=== PATIENT | male | born 1950 | race Caucasian/White ===

== ENCOUNTER → 2019-01-25 | Outpatient (CLI) | payer MEDICARE, BC ==
--- NOTE | 2019-01-25 16:51 | CT ---
EXAMINATION TYPE: CT chest wo con DATE OF EXAM: 01/25/2019 COMPARISON: None HISTORY: abnormal lung tillman CT DLP: 819.9 mGycm, Automated exposure control for dose reduction was used. CONTRAST: None TECHNIQUE: Axial images were obtained at 1 mm thick sections at 10 mm intervals. This will limit po rtions of the examination which may not be visualized within the [id number]. Images were obtained in the prone and supine views. FINDINGS: Portion of the thyroid visualized is normal. There is scattered peripheral increased lung markings compatible some pulmonary fibrosis. There is an area of thickening within the posterior lateral right lung, series 8 image 15 measuring 0.8 cm. Atel ectasis and a mass could be considered. No enlarged mediastinal or hilar adenopathy is evident. The ascending aorta diameter at the level o f the main pulmonary artery is 4.0 cm. The main pulmonary artery diameter at the bifurcation is 2.7 cm. Moderate coronary artery calcification is present. Limited CT sections are obtained through the upper abdomen. Abdomen is essentially unremarkable. IMPRESSIONS: 1. Peripheral increased lung markings compatible with early changes of pulmonary fibrosis. 2. 0.8 cm thick soft tissue density posterior lateral right midlung. Consider PET CT for additional e valuation. Neoplasm is not excluded.
== END | disposition home or self-care (01) ==
LOC: RADCTMAIN 15:39
PROVIDERS: ATTEND Internal Medicine Critical Care Medicine
DX: J84.10 Pulmonary fibrosis, unspecified (principal); J98.4 Other disorders of lung
CPT/HCPCS: 71250

== ENCOUNTER → 2022-07-05 | Outpatient (CLI) | payer MEDICARE, BC ==
--- NOTE | 2022-07-05 09:41 | PE ---
EXAMINATION TYPE: PET CT fusion whole body DATE OF EXAM: 07/05/2022 COMPARISON: Prior chest CT 2019 HISTORY: Multiple myeloma , newly diagnosed. No further information provided. TECHNIQUE: Following the intravenous administration of 10.79 mCi of F-18 FDG, whole body images are performed from the top of skull to the bottom of feet. Images are reviewed on the computer in the co pelon, axial, and sagittal planes. Reconstructed rotating images are created on independent workstat ion and reviewed on the computer. A localization and attenuation correction CT is performed in conj unction with the PET scan. Blood glucose level equals 95 SCAN: Initial Scan FINDINGS: HEAD AND NECK: No areas of abnormal hypermetabolic uptake are identified. CHEST, MEDIASTINUM, AND HILAR REGION: No areas of metabolic uptake. ABDOMEN AND PELVIS: Abnormal excretion. Mild nonspecific bowel uptake. No areas of suspicious abnorma l hypermetabolic uptake. Lower extremities: No abnormal hypermetabolic uptake. Genu varum positioning is seen bilateral knees with mild symmetric uptake is presumed product of inflammation related to osteoarthritis. OSSEOUS STRUCTURES: No areas of abnormal hypermetabolic uptake. OTHER CT: Mild calcified plaque bilateral carotid bulb level. Overlying sternal wires along with left atrial appendage clip are present. There is cardiomegaly seen. Ascending aortic aneurysm up to 4.2 c m axial image 111. Enlarged bilateral pulmonary arteries consistent with underlying pulmonary artery hypertension. Diverticula of the left and sigmoid colon. Large metallic nails through healed fracture right proxima l femur. IMPRESSION: No suspicious hypermetabolic masses or osseous lytic lesions to suggest active myeloma de posits.
== END | disposition home or self-care (01) ==
LOC: RADPETMAIN 06:43
PROVIDERS: ATTEND Internal Medicine
DX: D47.2 Monoclonal gammopathy (principal); C90.00 Multiple myeloma not having achieved remission
CPT/HCPCS: 78816; A9552

== ENCOUNTER → 2022-12-09 | Outpatient (CLI) | payer MEDICARE, BC ==
--- NOTE | 2022-12-09 13:58 | US ---
EXAMINATION TYPE: US venous doppler duplex LE DATE OF EXAM: 12/09/2022 1:26 PM COMPARISON: NONE CLINICAL INDICATION: Male, 72 years old with history of M79.662; M79.661; BILATERAL PAIN IN LEGS X 1 MONTH, DIFFICULTY SLEEPING DUE TO PAIN SIDE PERFORMED: Bilateral TECHNIQUE: The lower extremity deep venous system is examined utilizing real time linear array sonog shoaib with graded compression, doppler sonography and color-flow sonography. VESSELS IMAGED: Common Femoral Vein Deep Femoral Vein Greater Saphenous Vein * Femoral Vein Popliteal Vein Proximal Calf Veins (* superficial vessels) Right Leg: Negative for DVT Left Leg: Negative for DVT IMPRESSION: Grayscale, color doppler, spectral doppler imaging performed of the deep veins of the lo wer extremities. There is normal flow, compressibility, vascular waveforms.
== END | disposition home or self-care (01) ==
LOC: RADUSWWP 12:42
PROVIDERS: ATTEND Internal Medicine
DX: M79.662 Pain in left lower leg (principal); M79.661 Pain in right lower leg
CPT/HCPCS: 93970

== ENCOUNTER → 2022-12-26 | Outpatient (CLI) | payer MEDICARE, BC ==
--- NOTE | 2022-12-28 18:06 | MR ---
EXAMINATION TYPE: MR misti/lsivet wo/w con DATE OF EXAM: 12/26/2022 9:20 AM CLINICAL INDICATION:Male, 72 years old with history of C90.00; Lower back pain, BLE radiculopathy x 2 mos. Hx multiple myeloma. COMPARISON: Pet/CT 07/05/2022, CT 01/25/2019 TECHNIQUE: Multi planar, multi sequence imaging was performed utilizing: T1-weighted, T2-weighted, a nd turbo inversion recovery imaging of the thoracic and lumbar spine. IV Contrast: 8.5 cc Gadavist. None. FINDINGS: Alignment: The thoracic and lumbar vertebral bodies have preserved heights and alignment. Cord: The conus medullaris and the distal spinal cord appear unremarkable with regards to their signa l intensity and morphology. Bones/Discs: No abnormal bony edema on inversion recovery sequences within the thoracic spine. Multilevel degenera tion with osteophyte formation disc space narrowing and Schmorl's nodes. High T2 focus within the pos terior elements of T2 measuring 9 mm and within the vertebral body of T6 measuring 12 mm as well as T 7 vertebral body measuring 6 mm. Multilevel degeneration changes with osteophyte formation and disc space narrowing within the lumbar spine. Findings are worse at L5-S1. High T2 signal lesion within the posterior right vertebral body o f L5 extends into the pedicle measuring up to 2.9 x 1.9 cm.. Additional more anterior left vertebral body lesion measuring 9 mm. Left iliac bone cyst also present measuring up to 23 x 18 mm. All of these lesions are intrinsically high T1 signal and does not definitively enhance given limitat ions of nonsubtraction imaging. THORACIC: No evidence for significant spinal canal or neural foraminal stenosis. LUMBAR: T12-L1: No evidence of significant spinal canal stenosis or neural foraminal stenosis. L1-L2: No evidence of significant spinal canal stenosis or neural foraminal stenosis. L2-L3: No evidence of significant spinal canal stenosis or neural foraminal stenosis. L3-L4: Disc bulge and facet joint arthropathy result in mild spinal canal and mild bilateral neural f oraminal stenosis. L4-L5: Disc bulge and facet joint arthropathy result in mild spinal canal and mild bilateral neural f oraminal stenosis. L5-S1: The disc is rounded posterior morphology without significant spinal canal stenosis. Facet join t arthropathy with mild neural foraminal stenosis. . IMPRESSION: 1. No definitive evidence of disc herniation or significant spinal canal or neural foraminal stenosi s. 2. Scattered high T2 and intrinsically high T1 signal lesions throughout the osseous structures likel y related to multiple myeloma. These do not demonstrate increased FDG activity on prior PET/CT. No de finitive enhancement on postcontrast imaging however given intrinsic high T1 signal evaluation is ureña ited.
== END | disposition home or self-care (01) ==
LOC: RADMRIMAIN 07:36
PROVIDERS: ATTEND Internal Medicine
DX: C90.00 Multiple myeloma not having achieved remission (principal); M51.16 Intervertebral disc disorders with radiculopathy, lumbar region; M47.26 Other spondylosis with radiculopathy, lumbar region; M99.73 Connective tissue and disc stenosis of intervertebral foramina of lumbar region
CPT/HCPCS: 72157; 72158; A9585

== ENCOUNTER → 2023-08-21 | Outpatient (CLI) | payer MEDICARE, BC ==
--- NOTE | 2023-08-25 11:07 | PE ---
EXAMINATION TYPE: PET CT fusion skull to thigh DATE OF EXAM: 08/21/2023 CLINICAL INDICATION:Male, 73 years old with history of C90.00; TECHNIQUE: Following the intravenous administration of 10.18 mCi of F-18 FDG, whole body images are performed from the skull base to the midthigh. Images are reviewed on the computer in the coronal, axial, and sagittal planes. Reconstructed rotating images are created on independent workstation and reviewed on the computer. A non-contrast CT is performed in conjunction with the PET scan. Glucose level 99 mg/dL CT DLP: 797 mGycm, Automated exposure control for dose reduction was used. COMPARISON: CT None, PET/CT 07/05/2022, FINDINGS: Mediastinal SUV mean is 2.3. Hepatic parenchyma SUV mean is 2.8. SKULL BASE AND NECK: No suspicious radiotracer activity. CHEST, MEDIASTINUM, AND HILAR REGION: No suspicious radiotracer activity. ABDOMEN AND PELVIS: No suspicious radiotracer activity. MUSCULOSKELETAL STRUCTURES: No suspicious radiotracer activity. OTHER CT: Mild calcified plaque bilateral carotid bulb level. Moderate cardiomegaly with severe coron geri artery sclerosis.. Mild ectasia of ascending thoracic aorta measuring up to 4.0 cm. Enlarged bila teral pulmonary arteries consistent with underlying pulmonary artery hypertension. Diverticula of the left and sigmoid colon. Large metallic nails through healed fracture right proxima l femur. IMPRESSION: No suspicious radiotracer activity.
== END | disposition home or self-care (01) ==
LOC: RADPETMAIN 13:07
PROVIDERS: ATTEND Internal Medicine
DX: C90.00 Multiple myeloma not having achieved remission (principal)
CPT/HCPCS: 78815; A9552

== ENCOUNTER 2023-08-31 14:13 | Emergency (ER) | payer MEDICARE, BC ==
[2023-08-31 14:49] VITALS: TEMP 98.5
--- NOTE | 2023-08-31 15:00 | ED ---
Abdominal Pain HPI - General Chief Complaint: Abdominal Pain Stated Complaint: GI Issues Time Seen by Provider: 08/31/23 14:28 Source: patient, RN notes reviewed Mode of arrival: ambulatory Limitations: no limitations - History of Present Illness Initial Comments: 73-year-old male presents emergency department complaint abdominal pain, diarrhea. He states that he has been having normal discomfort on and off for several weeks but states last week he has had severe diarrhea he states he goes several times an hour if he eats or drinks anything. States he does have multiple Aloma is on oral chemotherapy. He had a recent PET scan not showing any significant findings. He does have a history of diverticulosis denies any rectal bleeding, melanotic stools. He states that he is lost several pounds, feels weak, dehydrated because of this. - Related Data Home Medications Medication Instructions Recorded Confirmed Aspirin [[place] Aspirin EC] 81 mg PO DAILY 07/17/22 08/31/23 Atorvastatin [Lipitor] 40 mg PO HS 07/17/22 08/31/23 Ezetimibe [Zetia] 10 mg PO HS 07/17/22 08/31/23 Losartan [Cozaar] 50 mg PO DAILY 07/17/22 08/31/23 ALPRAZolam [Xanax] 0.25 mg PO Q8H PRN 07/23/22 08/31/23 Azelastine HCl [Astelin Nasal 2 spray NASAL BID 08/31/23 08/31/23 [place]] HYDROcodone/APAP 10-325MG [[place] 1 tab PO Q4HR PRN 08/31/23 08/31/23 10-325] Lenalidomide [Revlimid] 5 mg PO DIRECTED 08/31/23 08/31/23 Loratadine [Claritin] 10 mg PO DIRECTED 08/31/23 08/31/23 Morphine Sulfate ER [Ms Contin] 15 mg PO Q12HR 08/31/23 08/31/23 Morphine Sulfate Ir [MSIR] 15 mg PO Q4H PRN 08/31/23 08/31/23 Previous Rx's Medication Instructions Recorded Amoxic-Pot Clav 875-125Mg 1 tab PO Q12HR #20 tab 08/31/23 [Augmentin 875-125] Allergies Allergy/AdvReac Type Severity Reaction Status Date / Time No Known Allergies Allergy Verified 08/31/23 17:32 Review of Systems ROS Statement: Those systems with pertinent positive or pertinent negative responses have been documented in the HPI. ROS Other: All systems not noted in ROS Statement are negative. Past Medical History Past Medical History: Coronary Artery Disease (CAD), Hypertension, Myocardial Infarction ([place]) Additional Past Medical History / Comment(s): Diverticulitis. Multiple Myeloma Last Myocardial Infarction Date:: 2012 History of Any Multi-Drug Resistant Organisms: None Reported Past Surgical History: Coronary Bypass/CABG, Orthopedic Surgery Past Anesthesia/Blood Transfusion Reactions: No Reported Reaction Past Psychological History: Anxiety, Depression Smoking Status: Never smoker Past Alcohol Use History: None Reported Past Drug Use History: None Reported General Exam Limitations: no limitations General appearance: alert, in no apparent distress Head exam: Present: atraumatic, normocephalic, normal inspection Eye exam: Present: normal appearance, PERRL, EOMI. Absent: scleral icterus, conjunctival injection, periorbital swelling Respiratory exam: Present: normal lung sounds bilaterally. Absent: respiratory distress, wheezes, rales, rhonchi, stridor Cardiovascular Exam: Present: regular rate, normal rhythm, normal heart sounds. Absent: systolic murmur, diastolic murmur, rubs, gallop, clicks GI/Abdominal exam: Present: soft, tenderness, normal bowel sounds. Absent: distended, guarding, rebound, rigid Back exam: Absent: CVA tenderness (R), CVA tenderness (L) Neurological exam: Present: alert Skin exam: Present: warm, dry, intact, normal color. Absent: rash Course Vital Signs 08/31/23 08/31/23 14:23 18:09 Temperature 98.5 F Pulse Rate 60 51 L Respiratory 20 Rate Blood Pressure 125/71 O2 Sat by Pulse 99 96 Oximetry Medical Decision Making - Medical Decision Making Was pt. sent in by a medical professional or institution (, PA, HEEL SEWER, urgent care, hospital, or fci...) When possible be specific @ -No Did you speak to anyone other than the patient for history (EMS, parent, family, police, friend...)? What history was obtained from this source @ -No Did you review nursing and triage notes (agree or disagree)? Why? @ -I reviewed and agree with nursing and triage notes Were old charts reviewed (outside hosp., previous admission, EMS record, old EKG, old radiological studies, urgent care reports/EKG's, fci records)? Report findings @ -Reviewed prior labs, PET scan and other imaging Differential Diagnosis (chest pain, altered mental status, abdominal pain women, abdominal pain men, vaginal bleeding, weakness, fever, dyspnea, syncope, headache, dizziness, GI bleed, back pain, seizure, CVA, palpatations, mental health, musculoskeletal)? @ -Differential Abdominal Pain Men: Appendicitis, cholecystitis, diverticulosis, ischemic bowel, pancreatitis, hepatitis, UTI, gastroenteritis, AAA, incarcerated hernia, bowel obstruction, constipation, inflammatory bowel, hepatitis, peptic ulcer disease, splenic infarction, perforated viscus, testicular torsion, this is not meant to be an all-inclusive list EKG interpreted by me (3pts min.). @ -None X-rays interpreted by me (1pt min.). @ -None done CT interpreted by me (1pt min.). @ -CT abdomen pelvis showing evidence of acute diverticulitis U/S interpreted by me (1pt. min.). @ -None done What testing was considered but not performed or refused? (CT, X-rays, U/S, labs)? Why? @ -None What meds were considered but not given or refused? Why? @ -None Did you discuss the management of the patient with other professionals (professionals i.e. , PA, HEEL SEWER, lab, RT, psych nurse, case management social worker, international project engineer, teacher, security vehicle patrol officer, home health care case manager)? Give summary @ -No Was smoking cessation discussed for >3mins.? @ -No Was critical care preformed (if so, how long)? @ -No Were there social determinants of health that impacted care today? How? (Lauren elessness, low income, unemployed, alcoholism, drug addiction, transportation, low edu. Level, literacy, decrease access to med. care, [facility], rehab)? @ -No Was there de-escalation of care discussed even if they declined (Discuss DNR or withdrawal of care, Hospice)? DNR status @ -No What co-morbidities impacted this encounter? (DM, HTN, Smoking, COPD, CAD, Cancer, CVA, ARF, Chemo, Hep., AIDS, mental health diagnosis, sleep apnea, morbid obesity)? @ -Multiple myeloma Was patient admitted / discharged? Hospital course, mention meds given and route, prescriptions, significant lab abnormalities, going to OR and other pertinent info. @ -Discharge patient has acute diverticulitis vitals are stable, laboratory studies unremarkable patient is discharge on Augmentin and clear liquid diet and follow-up with GI. Undiagnosed new problem with uncertain prognosis? @ -No Drug Therapy requiring intensive monitoring for toxicity (Heparin, Nitro, Insulin, Cardizem)? @ -No Were any procedures done? @ -No Diagnosis/symptom? @ -Diverticulitis Acute, or Chronic, or Acute on Chronic? @ -Acute Uncomplicated (without systemic symptoms) or Complicated (systemic symptoms)? @ -Uncomplicated Side effects of treatment? @ -No Exacerbation, Progression, or Severe Exacerbation? @ -No Poses a threat to life or bodily function? How? (Chest pain, [place], [place], pneumonia, PE, COPD, DKA, ARF, appy, cholecystitis, CVA, Diverticulitis, Homicidal, Suicidal, threat to staff... and all critical care pts) @ -Yes low likelihood diverticulitis, - Lab Data Result diagrams: 08/31/23 15:20 08/31/23 15:20 Lab Results 08/31/23 08/31/23 08/31/23 Range/Units 15:20 15:20 15:20 WBC 10.0 (3.8-10.6) k/uL RBC 4.66 (4.30-5.90) m/uL Hgb 14.8 (13.0-17.5) gm/dL Hct 45.3 (39.0-53.0) % MCV 97.2 (80.0-100.0) fL MCH 31.7 (25.0-35.0) pg MCHC 32.6 (31.0-37.0) g/dL RDW 13.7 (11.5-15.5) % Plt Count 257 (150-450) k/uL MPV 7.8 Neutrophils % 38 % Lymphocytes % 18 % Monocytes % 8 % Eosinophils % 33 % Basophils % 0 % Neutrophils # 3.8 (1.3-7.7) k/uL Lymphocytes # 1.8 (1.0-4.8) k/uL Monocytes # 0.8 (0-1.0) k/uL Eosinophils # 3.3 H (0-0.7) k/uL Basophils # 0.0 (0-0.2) k/uL Manual Slide Review Performed Sodium 140 (137-145) mmol/L Potassium 4.6 (3.5-5.1) mmol/L Chloride 108 H (98-107) mmol/L Carbon Dioxide 24 (22-30) mmol/L Anion Gap 8 mmol/L BUN 16 (9-20) mg/dL Creatinine 0.95 (0.66-1.25) mg/dL Est GFR (CKD-EPI)AfAm >90 (>60 ml/min/1.73 sqM) Est GFR (CKD-EPI)NonAf 80 (>60 ml/min/1.73 sqM) Glucose 91 (74-99) mg/dL Plasma Lactic Acid Travon (0.7-2.0) mmol/L Calcium 8.9 (8.4-10.2) mg/dL Total Bilirubin 0.9 (0.2-1.3) mg/dL AST 35 (17-59) U/L ALT 20 (4-49) U/L Alkaline Phosphatase 66 (38-126) U/L Total Protein 8.5 H (6.3-8.2) g/dL Albumin 4.3 (3.5-5.0) g/dL Lipase 87 (23-300) U/L Urine Color Yellow Urine Appearance Turbid (Clear) Urine pH 5.5 (5.0-8.0) Ur Specific Bittinger 1.020 (1.001-1.035) Urine Protein Trace H (Negative) Urine Glucose (UA) Negative (Negative) Urine Ketones Negative (Negative) Urine Blood Negative (Negative) Urine Nitrite Negative (Negative) Urine Bilirubin Negative (Negative) Urine Urobilinogen <2.0 (<2.0) mg/dL Ur Leukocyte Esterase Negative (Negative) Urine RBC 1 (0-5) /hpf Urine WBC 4 (0-5) /hpf Ur Squamous Epith Cells <1 (0-4) /hpf Amorphous Sediment Occasional H (None) /hpf Hyaline Casts 1 (0-2) /lpf Urine Mucus Moderate H (None) /hpf C. difficile (EIA) Intrp (Negative) 08/31/23 08/31/23 Range/Units 15:20 16:15 WBC (3.8-10.6) k/uL RBC (4.30-5.90) m/uL Hgb (13.0-17.5) gm/dL Hct (39.0-53.0) % MCV (80.0-100.0) fL MCH (25.0-35.0) pg MCHC (31.0-37.0) g/dL RDW (11.5-15.5) % Plt Count (150-450) k/uL MPV Neutrophils % % Lymphocytes % % Monocytes % % Eosinophils % % Basophils % % Neutrophils # (1.3-7.7) k/uL Lymphocytes # (1.0-4.8) k/uL Monocytes # (0-1.0) k/uL Eosinophils # (0-0.7) k/uL Basophils # (0-0.2) k/uL Manual Slide Review Sodium (137-145) mmol/L Potassium (3.5-5.1) mmol/L Chloride (98-107) mmol/L Carbon Dioxide (22-30) mmol/L Anion Gap mmol/L BUN (9-20) mg/dL Creatinine (0.66-1.25) mg/dL Est GFR (CKD-EPI)AfAm (>60 ml/min/1.73 sqM) Est GFR (CKD-EPI)NonAf (>60 ml/min/1.73 sqM) Glucose (74-99) mg/dL Plasma Lactic Acid Travon 1.0 (0.7-2.0) mmol/L Calcium (8.4-10.2) mg/dL Total Bilirubin (0.2-1.3) mg/dL AST (17-59) U/L ALT (4-49) U/L Alkaline Phosphatase (38-126) U/L Total Protein (6.3-8.2) g/dL Albumin (3.5-5.0) g/dL Lipase (23-300) U/L Urine Color Urine Appearance (Clear) Urine pH (5.0-8.0) Ur Specific [place]itting[place] (1.001-1.035) Urine Protein (Negative) Urine Glucose (UA) (Negative) Urine Ketones (Negative) Urine Blood (Negative) Urine Nitrite (Negative) Urine Bilirubin (Negative) Urine Urobilinogen (<2.0) mg/dL Ur Leukocyte Esterase (Negative) Urine RBC (0-5) /hpf Urine WBC (0-5) /hpf Ur Squamous Epith Cells (0-4) /hpf Amorphous Sediment (None) /hpf Hyaline Casts (0-2) /lpf Urine Mucus (None) /hpf C. difficile (EIA) Intrp Negative (Negative) Disposition Clinical Impression: Diverticulitis Disposition: HOME SELF-CARE Condition: Stable Instructions (If sedation given, give patient instructions): Diverticulitis (ED), Diverticulitis Diet (ED) Additional Instructions: Please return to the Emergency Department if symptoms worsen or any other concerns. Prescriptions: Amoxic-Pot Clav 875-125Mg [Augmentin 875-125] 1 tab PO Q12HR #20 tab Is patient prescribed a controlled substance at d/c from ED?: No Referrals: None,Stated [REFERRING] - 1-2 days Brenda Kaiser MD [STAFF PHYSICIAN] - 1-2 days Randal Chaney MD [Medical Doctor] - 1-2 days Time of Disposition: 18:37
[2023-08-31] MEDS: SODIUM CHLORIDE 0.9% 1,000 ML IV STA (15:22)
[2023-08-31 15:58] LABS: Basophils % (A) 0 %; Eosinophils # (A) 3.3 k/uL (0-0.7); Eosinophils % (A) 33 %; HCT 45.3 % (39.0-53.0); HGB 14.8 gm/dL (13.0-17.5); Lymphocytes # (A) 1.8 k/uL (1.0-4.8); Lymphocytes % (A) 18 %; MCH 31.7 pg (25.0-35.0); MCHC 32.6 g/dL (31.0-37.0); MCV 97.2 fL (80.0-100.0); Mean Platelet Volume 7.8; Monocytes # (A) 0.8 k/uL (0-1.0); Monocytes % (A) 8 %; Neutrophils # (A) 3.8 k/uL (1.3-7.7); Neutrophils % (A) 38 %; Platelet Count 257 k/uL (150-450); RBC 4.66 m/uL (4.30-5.90); RDW 13.7 % (11.5-15.5)
[2023-08-31 16:05] LABS: Amorphous Sediment,Urine Occasional /hpf; Appearance,Urine Turbid (Clear); Bilirubin,Urine Negative (Negative); Blood,Urine Negative (Negative); Color,Urine Yellow; Glucose,Urine (UA) Negative (Negative); Hyaline Casts,Urine 1 /lpf (0-2); Ketones,Urine Negative (Negative); Leukocyte Esterase,Urine Negative (Negative); Mucus,Urine Moderate /hpf; Nitrite,Urine Negative (Negative); PH, Urine 5.5 (5.0-8.0); Protein,Urine Trace (Negative); RBC,Urine 1 /hpf (0-5); Squamous Epithelial Cell,Urine <1 /hpf (0-4); Urobilinogen,Urine <2.0 mg/dL (<2.0); WBC,Urine 4 /hpf (0-5)
[2023-08-31 16:07] LABS: ALT 20 U/L (4-49); AST 35 U/L (17-59); African American GFR (CKD) >90 (>60 ml/min/1.73 sqM); Albumin 4.3 g/dL (3.5-5.0); Alkaline Phosphatase 66 U/L (38-126); Anion Gap 8 mmol/L; Blood Urea Nitrogen 16 mg/dL (9-20); Calcium 8.9 mg/dL (8.4-10.2); Carbon Dioxide 24 mmol/L (22-30); Chloride 108 mmol/L (98-107); Glucose 91 mg/dL (74-99); Lipase 87 U/L (23-300); Non-African American GFR(CKD) 80 (>60 ml/min/1.73 sqM); Sodium 140 mmol/L (137-145); Total Bilirubin 0.9 mg/dL (0.2-1.3); Total Protein 8.5 g/dL (6.3-8.2)
[2023-08-31 16:25] LABS: Potassium 4.6 mmol/L (3.5-5.1)
--- NOTE | 2023-08-31 18:17 | CT ---
EXAMINATION TYPE: CT abdomen pelvis w con CT DLP: 935.7 mGycm, Automated exposure control for dose reduction was used. DATE OF EXAM: 08/31/2023 4:52 PM COMPARISON: Reference PET/CT 08/21/2023 CLINICAL INDICATION:Male, 73 years old with history of abdominal pain; Abd pain and diarrhea x7days. TECHNIQUE: Axial CT of the abdomen and pelvis. Sagittal and coronal reformats were created on a [employer] workstation. Contrast used:100 mL of Isovue 300 with IV Contrast, Oral contrast used: None FINDINGS: LOWER CHEST: Heart is moderately enlarged with moderate to heavy coronary arterial calcifications and partially seen mild calcification of the proximal aorta. Lung bases show significant fibrotic change s bilaterally. No evidence of acute infiltrate or effusion. ABDOMEN LIVER: Unremarkable GALLBLADDER AND BILE DUCTS: Unremarkable gallbladder. No biliary ductal dilatation. PANCREAS: Unremarkable. SPLEEN: Unremarkable. ADRENAL GLANDS: Mildly thickened without evidence of mass.. KIDNEYS AND URETERS: Kidneys enhance symmetrically. No evidence of hydronephrosis or visible renal ca lculus. Mildly prominent extrarenal pelves. Multiple small low-attenuation nodules throughout both ki dneys are too small to characterize but are probably cysts. PELVIS BLADDER: Incompletely distended but grossly unremarkable. REPRODUCTIVE: Nonenlarged prostate with a few small parenchymal calcifications. Bilateral radiodensi ties associated with the scrotum, likely from vasectomy. ABDOMEN & PELVIS STOMACH AND BOWEL: Stomach and small bowel are nondistended, no evidence of obstruction. Appendix a ppears within normal limits. There is mild/moderate stool seen throughout the colon. Several divertic durga are seen throughout the colon, most concentrated in the distal descending and sigmoid colon. Ther e is a relatively long segment of wall thickening in the sigmoid colon with some pericolonic fat stra nding. No extraluminal gas or abscess is seen. PERITONEUM/RETROPERITONEUM: No evidence of pneumoperitoneum or free fluid. VASCULATURE: Moderate atherosclerotic calcifications are present throughout the abdominal aorta and i ts branches. No evidence of aortic aneurysm. Portal veins are enhancing. Splenic vein is patent. IV C is normal caliber. LYMPH NODES: No enlarged nodes by CT criteria SOFT TISSUE/ABDOMINAL WALL: Small fat-containing left inguinal hernia and tiny fat-containing umbilic al hernia. No acute abnormality. MUSCULOSKELETAL: Generalized osseous demineralization. Moderate degenerative changes throughout the v isualized spine. At L5 there is mild loss of height along the superior and inferior endplates posteri humza on the right; there are lucencies with relatively sclerotic margins extending into the bone from the inferior endplate, and to a lesser degree superior endplate, which did not show elevated uptake on PET; this is likely chronic sequela of Schmorl's nodes. There is no evidence of an acute compressi on fracture or destructive osseous lesion seen by CT, but MRI would be more sensitive. There is mild left and moderate right hip osteoarthropathy. Oblique fixation screws in the proximal r ight femur extending through the femoral neck into the head. Hardware appears intact. IMPRESSION: Findings in the sigmoid colon may represent colitis or diverticulitis. No evidence of complication.
[2023-08-31] MEDS: cefTRIAXone IN SWFI 1,000 MG/10 ML SYRINGE IVP STA (19:08)
[2023-08-31 19:26] VITALS: BP 144/66; PULSE 50; RESP 16
== END 2023-08-31 19:21 | disposition home or self-care (01) ==
LOC: EC 14:13
DX: K57.12 Diverticulitis of small intestine without perforation or abscess without bleeding (principal)
CPT/HCPCS: 36415; 80053; 83605; 83690; 85025; 81001; 87324; 74177; 99285; 96374; 96361; J0696; Q9967

== ENCOUNTER 2023-09-07 16:55 | Inpatient (IN) | payer MEDICARE, BC ==
--- NOTE | 2023-09-07 17:51 | ED ---
General Adult HPI - General Chief complaint: Nausea/Vomiting/Diarrhea Stated complaint: Inflamed colon Time Seen by Provider: 09/07/23 17:38 Source: patient Mode of arrival: ambulatory Limitations: no limitations - History of Present Illness Initial comments: 73-year-old male with a past medical history significant for multiple myeloma on Revlimid follows with Dr. Paulino presenting to the ED with a chief complaint of abdominal pain. Patient seen here initially on 08/31/2023. At that time patient presented secondary to several weeks of abdominal pain with some associated nausea and diarrhea worsening week of presentation. At that time, had a CT abdomen pelvis with contrast showing findings in the sigmoid colon possibly representing colitis or diverticulitis. Was discharged home on Augmentin. Since discharge, patient reports taking antiemetics, Imodium and despite this has had ongoing symptoms. Patient states that he has also been trying to take his antibiotics at home however has had difficulties tolerating it secondary to his symptoms. States that he even tried to break up his antibiotics into multiple doses however has still not been able to fully complete antibiotics at home as prescribed. Reports today still ongoing symptoms. He does not note that symptoms are significantly worse than usual however due to symptoms still ongoing prompting presentation to the ED for further evaluation. Reports that he has 5-10 episodes of nonbloody diarrhea a day. Denies melena. Does note some chills however denies fever. Denies chest pain or shortness of breath. No other complaints at this time. - Related Data Home Medications Medication Instructions Recorded Confirmed Aspirin [[place] Aspirin EC] 81 mg PO DAILY 07/17/22 08/31/23 Atorvastatin [Lipitor] 40 mg PO HS 07/17/22 08/31/23 Ezetimibe [Zetia] 10 mg PO HS 07/17/22 08/31/23 Losartan [Cozaar] 50 mg PO DAILY 07/17/22 08/31/23 ALPRAZolam [Xanax] 0.25 mg PO Q8H PRN 07/23/22 08/31/23 Azelastine HCl [Astelin Nasal 2 spray NASAL BID 08/31/23 08/31/23 [place]] HYDROcodone/APAP 10-325MG [[place] 1 tab PO Q4HR PRN 08/31/23 08/31/23 10-325] Lenalidomide [Revlimid] 5 mg PO DIRECTED 08/31/23 08/31/23 Loratadine [Claritin] 10 mg PO DIRECTED 08/31/23 08/31/23 Morphine Sulfate ER [Ms Contin] 15 mg PO Q12HR 08/31/23 08/31/23 Morphine Sulfate Ir [MSIR] 15 mg PO Q4H PRN 08/31/23 08/31/23 Previous Rx's Medication Instructions Recorded Amoxic-Pot Clav 875-125Mg 1 tab PO Q12HR #20 tab 08/31/23 [Augmentin 875-125] Allergies Allergy/AdvReac Type Severity Reaction Status Date / Time No Known Allergies Allergy Verified 09/07/23 17:08 Review of Systems ROS Statement: Those systems with pertinent positive or pertinent negative responses have been documented in the HPI. ROS Other: All systems not noted in ROS Statement are negative. Past Medical History Past Medical History: Coronary Artery Disease (CAD), Hypertension, Myocardial Infarction ([place]) Additional Past Medical History / Comment(s): Diverticulitis. Multiple Myeloma Last Myocardial Infarction Date:: 2012 History of Any Multi-Drug Resistant Organisms: None Reported Past Surgical History: Coronary Bypass/CABG, Orthopedic Surgery Past Anesthesia/Blood Transfusion Reactions: No Reported Reaction Past Psychological History: Anxiety, Depression Smoking Status: Never smoker Past Alcohol Use History: None Reported Past Drug Use History: None Reported General Exam Limitations: no limitations General appearance: alert, in no apparent distress Eye exam: Present: normal appearance Neck exam: Present: normal inspection Cardiovascular Exam: Present: regular rate GI/Abdominal exam: Present: soft (Left lower abdominal tenderness to palpation. No rebound guarding or rigidity. Bowel sounds active.) Neurological exam: Present: alert, oriented X3 Skin exam: Present: warm, dry Course Vital Signs 09/07/23 09/07/23 17:04 20:13 Temperature 98.1 F 98.0 F Pulse Rate 69 49 L Respiratory 18 20 Rate Blood Pressure 144/82 122/67 O2 Sat by Pulse 95 98 Oximetry Medical Decision Making - Medical Decision Making Was pt. sent in by a medical professional or institution (, PA, [facility]CH[facility], urgent care, hospital, or long-term...) When possible be specific @ -No Did you speak to anyone other than the patient for history (EMS, parent, family, police, friend...)? What history was obtained from this source @ -Spoke to the patient's who also provided parts of history. For further details please see HPI. Did you review nursing and triage notes (agree or disagree)? Why? @ -I reviewed and agree with nursing and triage notes Were old charts reviewed (outside hosp., previous admission, EMS record, old EKG, old radiological studies, urgent care reports/EKG's, long-term records)? Report findings @ -Prior visit reviewed. For further details please see HPI. Differential Diagnosis (chest pain, altered mental status, abdominal pain women, abdominal pain men, vaginal bleeding, weakness, fever, dyspnea, syncope, headache, dizziness, GI bleed, back pain, seizure, CVA, palpatations, mental health, musculoskeletal)? @ -Differential Abdominal Pain Men: Appendicitis, cholecystitis, diverticulosis, ischemic bowel, pancreatitis, hepatitis, UTI, gastroenteritis, AAA, incarcerated hernia, bowel obstruction, constipation, inflammatory bowel, hepatitis, peptic ulcer disease, splenic infarction, perforated viscus, testicular torsion, this is not meant to be an all-inclusive list EKG interpreted by me (3pts min.). @ -None X-rays interpreted by me (1pt min.). @ -None done CT interpreted by me (1pt min.). @ -Pelvis interpreted me which shows colitis versus diverticulitis with no significant change from prior. U/S interpreted by me (1pt. min.). @ -None done What testing was considered but not performed or refused? (CT, X-rays, U/S, labs)? Why? @ -None What meds were considered but not given or refused? Why? @ -None Did you discuss the management of the patient with other professionals (dejon dobson i.e. , PA, [facility], lab, RT, psych nurse, social media assistant, department store general manager, teacher, eeo officer, clinical case manager)? Give summary @ -Case discussed with Dr. Schmidt, who accepts admission Was smoking cessation discussed for >3mins.? @ -No Was critical care preformed (if so, how long)? @ -No Were there social determinants of health that impacted care today? How? (Homelessness, low income, unemployed, alcoholism, drug addiction, transportation, low edu. Level, literacy, decrease access to med. care, group home, rehab)? @ -No Was there de-escalation of care discussed even if they declined (Discuss DNR or withdrawal of care, Hospice)? DNR status @ -No What co-morbidities impacted this encounter? (DM, HTN, Smoking, COPD, CAD, Cancer, CVA, ARF, Chemo, Hep., AIDS, mental health diagnosis, sleep apnea, morbid obesity)? @ -Cancer on Revlimir Was patient admitted / discharged? Hospital course, mention meds given and route, prescriptions, significant lab abnormalities, going to OR and other pertinent info. @ -Admission 73-year-old male with a past medical history significant for multiple myeloma on Revlimid presenting to the ED with complaints of abdominal pain, nausea, vomiting, diarrhea. Was previously seen here on 08/31/23 and was diagnosed with diverticulitis. Was discharged home on Augmentin. Reports that he has been unable to take medications as prescribed and has had continuous symptoms, no significant change. However due to continued symptoms presenting to the ED for further evaluation. Laboratory studies reviewed. Labs including CBC CMP unremarkable. CT abdomen pelvis shows colitis versus diverticulitis with no significant change from prior. Do have to history of cancer on revlimir and failure of outpatient treatment patient will be admitted for IV antibiotics. Undiagnosed new problem with uncertain prognosis? @ -No Drug Therapy requiring intensive monitoring for toxicity (Heparin, Nitro, In sulin, Cardizem)? @ -No Were any procedures done? @ -No Diagnosis/symptom? @ -Colitis/diverticulitis Acute, or Chronic, or Acute on Chronic? @ -Acute Uncomplicated (without systemic symptoms) or Complicated (systemic symptoms)? @ -Uncomplicated Side effects of treatment? @ -No Exacerbation, Progression, or Severe Exacerbation? @ -No Poses a threat to life or bodily function? How? (Chest pain, [place], [place], pneumonia, PE, COPD, DKA, ARF, appy, cholecystitis, CVA, Diverticulitis, Homicidal, Suicidal, threat to staff... and all critical care pts) @ -No - Lab Data Result diagrams: 09/07/23 17:47 09/07/23 17:47 Lab Results 09/07/23 09/07/23 09/07/23 Range/Units 17:47 17:47 17:47 WBC 6.6 (3.8-10.6) k/uL RBC 5.01 (4.30-5.90) m/uL Hgb 15.7 (13.0-17.5) gm/dL Hct 48.2 (39.0-53.0) % MCV 96.2 (80.0-100.0) fL MCH 31.4 (25.0-35.0) pg MCHC 32.6 (31.0-37.0) g/dL RDW 13.6 (11.5-15.5) % Plt Count 294 (150-450) k/uL MPV 7.1 Neutrophils % 59 % Lymphocytes % 25 % Monocytes % 9 % Eosinophils % 2 % Basophils % 1 % Neutrophils # 3.9 (1.3-7.7) k/uL Lymphocytes # 1.6 (1.0-4.8) k/uL Monocytes # 0.6 (0-1.0) k/uL Eosinophils # 0.1 (0-0.7) k/uL Basophils # 0.1 (0-0.2) k/uL Sodium 142 (137-145) mmol/L Potassium 4.2 (3.5-5.1) mmol/L Chloride 109 H (98-107) mmol/L Carbon Dioxide 22 (22-30) mmol/L Anion Gap 11 mmol/L BUN 11 (9-20) mg/dL Creatinine 0.90 (0.66-1.25) mg/dL Est GFR (CKD-EPI)AfAm >90 (>60 ml/min/1.73 sqM) Est GFR (CKD-EPI)NonAf 84 (>60 ml/min/1.73 sqM) Glucose 92 (74-99) mg/dL Plasma Lactic Acid [place] 1.1 (0.7-2.0) mmol/L Calcium 9.3 (8.4-10.2) mg/dL Total Bilirubin 0.8 (0.2-1.3) mg/dL AST 38 (17-59) U/L ALT 39 (4-49) U/L Alkaline Phosphatase 71 (38-126) U/L Total Protein 8.9 H (6.3-8.2) g/dL Albumin 4.6 (3.5-5.0) g/dL Amylase 69 (30-110) U/L Lipase 202 (23-300) U/L Disposition Clinical Impression: Diverticulitis Disposition: ADMITTED IP TO THIS [facility] Condition: Good Referrals: Corey Teague DO [Primary Care Provider] - 1-2 days Time of Disposition: 22:00
[2023-09-07 18:13] LABS: ALT 39 U/L (4-49); AST 38 U/L (17-59); African American GFR (CKD) >90 (>60 ml/min/1.73 sqM); Albumin 4.6 g/dL (3.5-5.0); Alkaline Phosphatase 71 U/L (38-126); Amylase 69 U/L (30-110); Anion Gap 11 mmol/L; Blood Urea Nitrogen 11 mg/dL (9-20); Calcium 9.3 mg/dL (8.4-10.2); Carbon Dioxide 22 mmol/L (22-30); Chloride 109 mmol/L (98-107); Glucose 92 mg/dL (74-99); Lipase 202 U/L (23-300); Non-African American GFR(CKD) 84 (>60 ml/min/1.73 sqM); Potassium 4.2 mmol/L (3.5-5.1); Sodium 142 mmol/L (137-145); Total Bilirubin 0.8 mg/dL (0.2-1.3); Total Protein 8.9 g/dL (6.3-8.2)
[2023-09-07 18:18] LABS: Basophils # (A) 0.1 k/uL (0-0.2); Basophils % (A) 1 %; Eosinophils # (A) 0.1 k/uL (0-0.7); Eosinophils % (A) 2 %; HCT 48.2 % (39.0-53.0); HGB 15.7 gm/dL (13.0-17.5); Lymphocytes # (A) 1.6 k/uL (1.0-4.8); Lymphocytes % (A) 25 %; MCH 31.4 pg (25.0-35.0); MCHC 32.6 g/dL (31.0-37.0); MCV 96.2 fL (80.0-100.0); Mean Platelet Volume 7.1; Monocytes # (A) 0.6 k/uL (0-1.0); Monocytes % (A) 9 %; Neutrophils # (A) 3.9 k/uL (1.3-7.7); Neutrophils % (A) 59 %; Platelet Count 294 k/uL (150-450); RBC 5.01 m/uL (4.30-5.90); RDW 13.6 % (11.5-15.5); WBC 6.6 k/uL (3.8-10.6)
[2023-09-07] MEDS: SODIUM CHLORIDE 0.9% 1,000 ML IV STA (18:48)
[2023-09-07] MEDS: ONDANSETRON 4 MG/2 ML VIAL IVP STA (18:49)
[2023-09-07] MEDS: MORPHINE SULFATE 4 MG/ML SYRINGE IVP STA (18:50)
--- NOTE | 2023-09-07 21:32 | CT ---
EXAMINATION TYPE: CT abdomen pelvis w con CT DLP: 887.4 mGycm, Automated exposure control for dose reduction was used. DATE OF EXAM: 09/07/2023 7:08 PM COMPARISON: CT 08/31/2023 CLINICAL INDICATION:Male, 73 years old with history of hx diverticulitis worsening sxs; hx diverticul itis worsening sxs TECHNIQUE: Axial CT of the abdomen and pelvis. Sagittal and coronal reformats were created on a [employer] workstation. Contrast used:100ml mL of Isovue 300 with IV Contrast, (none if empty) Oral contrast used: without Oral Contrast (none if empty) FINDINGS: LOWER CHEST: Unchanged. Moderate cardiomegaly with coronary artery calcifications and fibrotic change s in the lung bases bilaterally. ABDOMEN LIVER: Unremarkable GALLBLADDER AND BILE DUCTS: Gallbladder appears contracted. PANCREAS: Unremarkable. SPLEEN: Unremarkable. ADRENAL GLANDS: Mildly thickened without evidence of mass.. KIDNEYS AND URETERS: Kidneys enhance symmetrically. No evidence of hydronephrosis or visible renal ca lculus. Mildly prominent extrarenal pelves. Multiple small low-attenuation nodules throughout both ki dneys are too small to characterize but are probably cysts. PELVIS BLADDER: Incompletely distended but grossly unremarkable. REPRODUCTIVE: Nonenlarged prostate with a few small parenchymal calcifications. Bilateral radiodensi ties associated with the scrotum, likely from vasectomy. ABDOMEN & PELVIS STOMACH AND BOWEL: Nonobstructed stomach and small bowel pattern. There is a thickened appearance of the gastric outlet, under distention versus true thickening. Appendix remains within normal limits. There is mild/moderate stool seen throughout tortuous colon. Several diverticula again seen throughou t the colon, most concentrated in the distal descending and sigmoid colon. Redemonstration of long se gment wall thickening in the sigmoid colon with some pericolonic fat stranding, with numerous diverti cula in the region. There is no evidence to suggest a perforation or abscess. Overall there has been no significant interval change in the appearance. PERITONEUM/RETROPERITONEUM: No evidence of pneumoperitoneum or free fluid. VASCULATURE: Moderate atherosclerotic calcifications are present throughout the abdominal aorta and i ts branches. No evidence of aortic aneurysm. Portal veins are enhancing. Splenic vein is patent. IV C is normal caliber. LYMPH NODES: No enlarged nodes by CT criteria SOFT TISSUE/ABDOMINAL WALL: Stable small fat-containing left inguinal hernia and tiny fat-containing umbilical hernia. No acute abnormality. MUSCULOSKELETAL: No significant interval change. Osteopenia with moderate degenerative changes throug hout the visualized spine, L5 endplate changes and sequela of Schmorl's nodes. Mild left and moderate right hip osteoarthropathy. Chronic deformity of the proximal right femur with proximal right femora l hardware again noted. IMPRESSION: Stable appearance of the sigmoid colon, colitis versus diverticulitis. No significant interval change.
[2023-09-07] MEDS ORDERED: HYDROmorphone 1 MG/ML 1 ML SYRINGE IVP PRN (22:34)
[2023-09-07] MEDS ORDERED: ACETAMINOPHEN TAB 325 MG TAB PO PRN (22:34)
[2023-09-07] MEDS ORDERED: NALOXONE 0.4 MG/ML 1 ML VIAL IV PRN (22:34)
[2023-09-07] MEDS: LEVOFLOXACIN 500MG-D5W PMX 500 MG in DEXTROSE/WATER 1 100ML.BAG IVPB STA (23:01)
--- NOTE | 2023-09-08 00:25 | P.HPIM ---
History of Present Illness H&P Date: 09/07/23 Patient is a 73-year-old male with a PMH of CAD status post CABG, multiple myeloma (currently undergoing treatment with Karmanos, on Revlimid), diverticulosis, hypertension, and hyperlipidemia who presents to the emergency room with complaints of abdominal pain, vomiting, and diarrhea. Patient reports he has been experiencing the symptoms for the past 1 month for which she was seen in the emergency room roughly a week ago. CT abdomen pelvis in the emergency room during that visit showed findings consistent with diverticulitis versus colitis. The patient was discharged home on a course of Augmentin, which patient notes he was unable to tolerate the medications as he would vomit shortly after taking them and thereby only took 1 to 2 days. He reports mild diffuse abdominal discomfort with unable to tolerate any food or liquid and thereby having lost 10 pounds during the past month. Denies fever, chills, chest pain, shortness of breath. Of note, the patient was tested for C. difficile during previous presentation which was negative. CT abdomen pelvis in the emergency room during this visit also revealed findings of diverticulitis versus colitis. Laboratory evaluation was remarkable for WBC count 6.6, hemoglobin 15.7, sodium 142, potassium 4.2, chloride 109, BUN 11, creatinine 0.9, with lipase 202. ED documentation reviewed and case discussed with ED provider. Review of systems: Pertinent positives and negatives as discussed in HPI, a complete review of systems was performed and all other systems are negative. Physical examination: Vital signs reviewed General: non toxic, no distress, appears at stated age, normal weight Derm: no unusual rashes/lesions, warm Head: atraumatic, normocephalic, symmetric Eyes: EOMI, no lid lag, anicteric sclera, pupils equal round reactive to light ENT: Nose and ears atraumatic Neck: No cervical lymphadenopathy, trachea midline, supple Mouth: no lip lesion, mucus membranes moist Cardiovascular: S1S2 reg, no murmur, positive dorsalis pedis pulse bilateral, no edema Lungs: CTA bilateral, no rhonchi, no rales, no accessory muscle use Abdominal: soft, nontender to palpation, no guarding Ext: muscle strength 5 out of 5 in all 4 extremities grossly, no gross muscle atrophy, no contractures, Neuro: CN II-XI grossly intact, no gross focal neuro deficits Psych: Alert, oriented, appropriate affect Assessment: Diverticulitis Chronic conditions: CAD, multiple myeloma, hypertension, hyperlipidemia Imaging: CT abdomen pelvis in the emergency room during this visit also revealed findings of diverticulitis versus colitis. Data Review: Laboratory evaluation was remarkable for WBC count 6.6, hemoglobin 15.7, sodium 142, potassium 4.2, chloride 109, BUN 11, creatinine 0.9, with lipase 202. Plan: Continue patient on Levaquin 750 mg IV daily and Flagyl 500 mg IV every 8 hour Continue IV fluids with normal saline 50 cc/h Follow-up blood cultures and stool cultures Full liquid diet for now Antiemetics C/w home medications Check Calprotectin and ESR levels DVT prophylaxis: Lovenox subcu The patient is admitted with an anticipated less than 2 midnight stay for evaluation of diverticulitis CODE STATUS: Full Code Discussed with: Patient Anticipated discharge place: Home Past Medical History Past Medical History: Coronary Artery Disease (CAD), Hypertension, Myocardial Infarction ([place]) Additional Past Medical History / Comment(s): Diverticulitis. Multiple Myeloma Last Myocardial Infarction Date:: 2012 History of Any Multi-Drug Resistant Organisms: None Reported Past Surgical History: Coronary Bypass/CABG, Orthopedic Surgery Past Anesthesia/Blood Transfusion Reactions: No Reported Reaction Past Psychological History: Anxiety, Depression Smoking Status: Never smoker Past Alcohol Use History: None Reported Past Drug Use History: None Reported Medications and Allergies Home Medications Medication Instructions Recorded Confirmed Type Aspirin [[place] Aspirin EC] 81 mg PO DAILY 07/17/22 08/31/23 History Atorvastatin [Lipitor] 40 mg PO HS 07/17/22 08/31/23 History Ezetimibe [Zetia] 10 mg PO HS 07/17/22 08/31/23 History Losartan [Cozaar] 50 mg PO DAILY 07/17/22 08/31/23 History ALPRAZolam [Xanax] 0.25 mg PO Q8H PRN 07/23/22 08/31/23 History Amoxic-Pot Clav 875-125Mg 1 tab PO Q12HR #20 tab 08/31/23 Rx [Augmentin 875-125] Azelastine HCl [Astelin Nasal 2 spray NASAL BID 08/31/23 08/31/23 History [place]] HYDROcodone/APAP 10-325MG [[place] 1 tab PO Q4HR PRN 08/31/23 08/31/23 History 10-325] Lenalidomide [Revlimid] 5 mg PO DIRECTED 08/31/23 08/31/23 History Loratadine [Claritin] 10 mg PO DIRECTED 08/31/23 08/31/23 History Morphine Sulfate ER [Ms Contin] 15 mg PO Q12HR 08/31/23 08/31/23 History Morphine Sulfate Ir [MSIR] 15 mg PO Q4H PRN 08/31/23 08/31/23 History Allergies Allergy/AdvReac Type Severity Reaction Status Date / Time No Known Allergies Allergy Verified 09/07/23 17:08 Physical Exam Vitals: Vital Signs Temp Pulse Resp BP Pulse Ox 09/07/23 23:05 55 L 16 124/50 98 09/07/23 20:13 98.0 F 49 L 20 122/67 98 09/07/23 17:04 98.1 F 69 18 144/82 95 Intake and Output 09/07/23 09/07/23 09/08/23 14:59 22:59 06:59 Other: Weight 81.647 kg Results CBC & Chem 7: 09/07/23 17:47 09/07/23 17:47 Labs: Abnormal Lab Results - Last 24 Hours (Table) 09/07/23 Range/Units 17:47 Chloride 109 H (98-107) mmol/L Total Protein 8.9 H (6.3-8.2) g/dL
[2023-09-08] MEDS: SODIUM CHLORIDE 0.9% 1,000 ML IV SCH (00:55)
[2023-09-08] MEDS: metroNIDAZOLE-NS PMX 500 MG in SALINE 1 100ML.BAG IVPB STA (00:55)
[2023-09-08] MEDS: HYDROmorphone 0.5 MG/0.5 ML SYRINGE IVP PRN (01:55)
[2023-09-08] MEDS ORDERED: LORATADINE 10 MG TAB PO SCH (10:15)
--- NOTE | 2023-09-08 10:15 | P.PN ---
Subjective Progress Note Date: 09/08/23 Pt reports improvement in his abd pain. Still bloated. Had trouble sleeping overnight. Gen: In NAD, non-toxic HEENT: normocephalic, atraumatic, hearing acuity is intant, mucous membranes moist CVS: perfusing all extremities well, no pitting edema, Respiratory: symmetric chest expansion, no accessory muscle use, GI: soft, left lower quadrant tenderness to palpation, nondistended : no suprapubic tenderness, no CVA tenderness MSK/Derm: no rashes, cyanosis Neuro: CN II-XII intact, no motor weakness, Psych: cooperative, euthymic mood, judgment and insight is intact Hospital course: Patient is a 73-year-old male with a PMH of CAD status post CABG, multiple myeloma (currently undergoing treatment with Karmanos, on Revlimid), diverticulosis, hypertension, and hyperlipidemia who presents to the emergency room with complaints of abdominal pain, vomiting, and diarrhea. CT abdomen pelvis in the emergency room during this visit also revealed findings of diverticulitis versus colitis. Laboratory evaluation was remarkable for WBC count 6.6, hemoglobin 15.7, sodium 142, potassium 4.2, chloride 109, BUN 11, creatinine 0.9, with lipase 202. Assessment: Diverticulitis -Continue patient on Levaquin 750 mg IV daily and Flagyl 500 mg IV every 8 hour -Continue IV fluids with normal saline 50 cc/h -Follow-up blood cultures and stool cultures -Full liquid diet for now -Antiemetics -C/w home medications -Check Calprotectin and ESR levels Chronic conditions: CAD, multiple myeloma, hypertension, hyperlipidemia DVT prophylaxis: Lovenox subcu CODE STATUS: Full Code Discussed with: Patient Anticipated discharge place: Home Objective - Vital Signs Vital signs: Vital Signs Temp 97.4 F L 09/08/23 07:40 Pulse 47 L 09/08/23 07:40 Resp 16 09/08/23 07:40 BP 142/67 09/08/23 07:40 Pulse Ox 94 L 09/08/23 07:40 FiO2 Intake & Output 09/07/23 09/08/23 09/08/23 18:59 06:59 18:59 Weight 81.647 kg 81.647 kg Other: # Bowel Movements 0 - Labs CBC & Chem 7: 09/07/23 17:47 09/07/23 17:47 Labs: Abnormal Lab Results - Last 24 Hours (Table) 09/07/23 09/08/23 Range/Units 17:47 00:46 ESR 46 H (0-20) mm/Hr Chloride 109 H (98-107) mmol/L Total Protein 8.9 H (6.3-8.2) g/dL
[2023-09-08] MEDS: ENOXAPARIN 40 MG/0.4 ML SYRINGE SQ SCH (10:22)
[2023-09-08] MEDS: metroNIDAZOLE-NS PMX 500 MG in SALINE 1 100ML.BAG IVPB SCH (10:22)
[2023-09-08] MEDS: MORPHINE SULFATE ER 15 MG TABLET PO SCH (10:23)
[2023-09-08] MEDS: ALPRAZolam 0.25 MG TAB PO PRN (12:36)
[2023-09-08] MEDS: HYDROcodone/APAP 10-325MG 1 EACH TAB PO PRN (12:36)
[2023-09-08] MEDS: MORPHINE SULFATE IR 15 MG TABLET PO PRN (17:06)
[2023-09-08] MEDS: METOCLOPRAMIDE 5 MG/ML 2 ML VIAL IVP PRN (17:07)
[2023-09-08] MEDS: EZETIMIBE 10 MG TAB PO SCH (21:58)
[2023-09-08] MEDS: ATORVASTATIN 40 MG TAB PO SCH (21:58)
[2023-09-08] MEDS: LEVOFLOXACIN 750MG-D5W PMX 750 MG in DEXTROSE/WATER 1 150ML.BAG IVPB SCH (21:59)
[2023-09-08] MEDS: AZELASTINE 137MCG/SPRAY NASAL SCH (21:59)
[2023-09-09] MEDS ORDERED: SIMETHICONE 80 MG CHEWABLE PO PRN (07:05)
[2023-09-09] MEDS: CALCIUM CARBONATE 500 MG CHEWABLE PO PRN (08:41)
[2023-09-09] MEDS: LOSARTAN 50 MG TAB PO SCH (08:42)
[2023-09-09] MEDS: ASPIRIN 81 MG PO SCH (08:42)
[2023-09-09 13:51] VITALS: BP 176/79; PULSE 52; RESP 19; TEMP 97.6
--- NOTE | 2023-09-09 14:42 | P.DS ---
Providers Date of admission: 09/08/23 08:14 Expected date of discharge: 09/09/23 Attending physician: Lauren Schmidt MD Primary care physician: Corey Teague Hospital Course: Discharge Diagnosis: Acute uncomplicated diverticulitis, failed outpatient therapy History of multiple myeloma Hospital Course: Patient is a 73-year-old male with a PMH of CAD status post CABG, multiple myeloma (currently undergoing treatment with [place], on Revlimid), diverticulosis, hypertension, and hyperlipidemia who presents to the emergency room with complaints of abdominal pain, vomiting, and diarrhea. CT abdomen pelvis in the emergency room during this visit also revealed findings of diverticulitis versus colitis. Laboratory evaluation was remarkable for WBC count 6.6, hemoglobin 15.7, sodium 142, potassium 4.2, chloride 109, BUN 11, cr eatinine 0.9, with lipase 202. Symptoms improved with IV antibiotics. Patient is no longer having diarrhea. Discharged home with oral antibiotics. Able to tolerate oral intake Patient seen and examined at bedside. Vital signs reviewed and stable. General: Nontoxic, no distress, appears at stated age Derm: Warm, dry Head: Atraumatic, normocephalic, symmetric Eyes: EOMI, no lid lag, anicteric sclera Mouth: No lip lesion, mucus membranes moist Cardiovascular: S1S2 reg, no murmur Lungs: CTA bilateral, no rhonchi, no rales, no accessory muscle use Abdominal: Soft, nontender to palpation, no guarding, no appreciable organomegaly Ext: No gross muscle atrophy, no edema, no contractures Neuro: CN II-XI grossly intact, no focal neuro deficits Psych: Alert, oriented, appropriate affect A total of 33 minutes of time were spent preparing this complex discharge summary. Patient was discharged on 08/09/2023 at 1439. Patient Condition at Discharge: Stable Plan - Discharge Summary Discharge Rx Participant: Yes New Discharge Prescriptions: New Levofloxacin [Levaquin] 750 mg PO DAILY #8 tab metroNIDAZOLE [Flagyl] 500 mg PO TID #24 tab Continue Ezetimibe [Zetia] 10 mg PO HS ALPRAZolam [Xanax] 0.25 mg PO Q8H PRN PRN Reason: Anxiety Morphine Sulfate Ir [MSIR] 15 mg PO Q4H PRN PRN Reason: Pain Loratadine [Claritin] 10 mg PO DIRECTED Azelastine HCl [Astelin Nasal [place]] 2 spray NASAL BID Atorvastatin [Lipitor] 40 mg PO HS Losartan [Cozaar] 50 mg PO DAILY Aspirin [[place] Aspirin EC] 81 mg PO DAILY HYDROcodone/APAP 10-325MG [[place] 10-325] 1 tab PO Q4HR PRN PRN Reason: Pain Lenalidomide [Revlimid] 5 mg PO DIRECTED Morphine Sulfate ER [Ms Contin] 15 mg PO Q12HR PRN PRN Reason: Pain Discharge Medication List Aspirin [[place] Aspirin EC] 81 mg PO DAILY 07/17/22 [History] Atorvastatin [Lipitor] 40 mg PO HS 07/17/22 [History] Ezetimibe [Zetia] 10 mg PO HS 07/17/22 [History] Losartan [Cozaar] 50 mg PO DAILY 07/17/22 [History] ALPRAZolam [Xanax] 0.25 mg PO Q8H PRN 07/23/22 [History] Azelastine HCl [Astelin Nasal [place]] 2 spray NASAL BID 08/31/23 [History] HYDROcodone/APAP 10-325MG [[place] 10-325] 1 tab PO Q4HR PRN 08/31/23 [History] Lenalidomide [Revlimid] 5 mg PO DIRECTED 08/31/23 [History] Loratadine [Claritin] 10 mg PO DIRECTED 08/31/23 [History] Morphine Sulfate ER [Ms Contin] 15 mg PO Q12HR PRN 08/31/23 [History] Morphine Sulfate Ir [MSIR] 15 mg PO Q4H PRN 08/31/23 [History] Levofloxacin [Levaquin] 750 mg PO DAILY #8 tab 09/09/23 [Rx] metroNIDAZOLE [Flagyl] 500 mg PO TID #24 tab 09/09/23 [Rx] Follow up Appointment(s)/Referral(s): Corey Teague DO [Primary Care Provider] - 1-2 days Patient Instructions/Handouts: Diverticulitis (DC), Diverticulitis Diet (DC) Activity/Diet/Wound Care/Special Instructions: Please see your PCP. Discharge Disposition: HOME SELF-CARE
[2023-09-09] MEDS: metroNIDAZOLE 500 MG TAB PO SCH (15:14)
[2023-09-10] MEDS ORDERED: LEVOFLOXACIN 750 MG TAB PO SCH (09:00)
== END 2023-09-09 16:45 | disposition home or self-care (01) | DRG 392 ==
LOC: EC 16:55 → 6NMEDSUR 22:37 → OBSVTOIN 09-08 08:14
PROVIDERS: ADMIT Internal Medicine; ATTEND Internal Medicine
DX: K57.32 Diverticulitis of large intestine without perforation or abscess without bleeding (principal); C90.00 Multiple myeloma not having achieved remission; I25.10 Atherosclerotic heart disease of native coronary artery without angina pectoris; E78.5 Hyperlipidemia, unspecified; F32.A Depression, unspecified; F41.9 Anxiety disorder, unspecified; Z88.1 Allergy status to other antibiotic agents; Z88.8 Allergy status to other drugs, medicaments and biological substances; I10 Essential (primary) hypertension; I25.2 Old myocardial infarction; Z79.82 Long term (current) use of aspirin; Z79.899 Other long term (current) drug therapy; Z95.1 Presence of aortocoronary bypass graft
CPT/HCPCS: 36415; 74177; 80053; 82150; 83605; 83690; 83993; 85025; 85652; 87040; 87045; 87046; 87324; 96361; 96365; 96375; 99285